=== PATIENT | male | born 1995 | race Caucasian/White ===

== ENCOUNTER 2020-01-12 15:14 | Emergency (ER) | payer BC ==
[~2020-01-12] VITALS: Ht 193 cm; Wt 113.4 kg
[2020-01-12] MEDS ORDERED: PROAIR HFA8.5 GM INH (15:58)
[2020-01-12] MEDS ORDERED: VENTOLIN HFA 1818 GM INH (17:47)
[2020-01-12] MEDS ORDERED: FLOVENT HFA 4444 MCG INH (17:47)
[2020-01-12] MEDS ORDERED: TESSALON PERLE100 MG PO (17:47)
[2020-01-12] MEDS ORDERED: IBUPROFEN 600600 M1 PO (17:47)
[2020-01-12 18:10] VITALS: BP 123/65
== END 2020-01-12 18:10 | disposition home or self-care (01) ==
LOC: ER 15:14
DX: J30.9 Allergic rhinitis, unspecified (principal); R07.89 Other chest pain; F17.210 Nicotine dependence, cigarettes, uncomplicated; Z79.899 Other long term (current) drug therapy